=== PATIENT | female | born 1950 | race Caucasian/White ===

== ENCOUNTER 2019-10-01 20:48 | Inpatient (IN) | payer OTHER ==
[~2019-10-01] VITALS: Ht 165.1 cm; Wt 115.7 kg
[2019-10-01 20:49] VITALS: BP 145/60
--- NOTE | 2019-10-01 20:49 | NUR ---
PT AMBULATED TO BED WITH DAUGHTER
--- NOTE | 2019-10-01 21:00 | NUR ---
69/F PRESENTS TO ED WITH DAUGHTER, C/O CONSTIPATION X4 DAYS. LBM 4 DAYS AGO WITH HARD, SMALL STOOL. REPORTS N/V X1 EPISODE TODAY. PT AWAKE AND ALERT, SKIN NORMAL COLOR WARM AND DRY, SPO2 95% ON RA, RR 22 EVEN AND MILDLY LABORED, LUNG SOUNDS CLEAR BL. HR EVEN AND REGULAR, NSR ON MONITOR. BS HYPOACTIVE X4, ABD SOFT LARGE TENDER TO UPPER ABD WITH PALPATION. HX HTN, DM, CHF, GERD, 4X BYPASS (2017), L NECK SURGERY
[2019-10-01] MEDS ORDERED: ONDANSETRON 4 MG/2 ML VIAL IVP ONE (21:50)
[2019-10-01] MEDS ORDERED: MORPHINE SULFATE 4 MG/ML SYR IVP ONE (21:50)
[2019-10-01] MEDS ORDERED: FERR325E14 PO (21:54)
[2019-10-01] MEDS ORDERED: ISOS20TA11 PO (21:54)
[2019-10-01] MEDS ORDERED: METO25TA PO (21:54)
[2019-10-01] MEDS ORDERED: METF500T PO (21:54)
[2019-10-01] MEDS ORDERED: ATOR40TA PO (21:54)
[2019-10-01] MEDS ORDERED: ISOS30TE68 PO (21:54)
[2019-10-01] MEDS ORDERED: HYDR-3233 PO (21:54)
[2019-10-01] MEDS ORDERED: AMLO10TA PO (21:54)
[2019-10-01] MEDS ORDERED: CARV25TA PO (21:54)
[2019-10-01] MEDS ORDERED: ASPI-1718 PO (21:54)
[2019-10-01] MEDS ORDERED: LOSA50TA66 PO (21:54)
[2019-10-01] MEDS ORDERED: OMEP20EC11 PO (21:54)
[2019-10-01] MEDS ORDERED: FURO-570 PO (21:54)
--- NOTE | 2019-10-01 21:55 | NUR ---
PT TAKEN TO CT SCAN VIA WHEELCHAIR
--- NOTE | 2019-10-01 22:30 | NUR ---
PT REFUSED MORPHINE IVP, PT STATED THAT SHE IS NOT IN PAIN, SHE JUST FEELS ABD PRESSURE. PT WITH NAUSEA, ADMINISTERED ZOFRAN IVP WITH EDUCATION, PT VERBALIZED UNDERSTANDING, TOLERATED WELL.
[2019-10-01 22:31] LABS: BASOPHILS % (AUTO) 0.3 % (0.0-2.0); EOSINOPHILS # (AUTO) 0.1 K/uL (0-0.4); EOSINOPHILS % (AUTO) 0.7 % (0.0-4.0); HEMATOCRIT 26.2 % (36-48); HEMOGLOBIN 8.8 g/dL (12.0-16.0); LYMPHOCYTES # (AUTO) 1.3 K/uL (2.5-16.5); LYMPHOCYTES % (AUTO) 14.8 % (20.5-51.1); MEAN CORPUSCULAR HEMOGLOBIN 30 pg (27-31); MEAN CORPUSCULAR HGB CONC 34 g/dL (33-37); MEAN CORPUSCULAR VOLUME 88.4 fL (80-94); MONOCYTES # (AUTO) 0.9 K/uL (0.8-1.0); MONOCYTES % (AUTO) 10.1 % (1.7-9.3); NEUTROPHILS # (AUTO) 6.7 K/uL (1.8-7.7); NEUTROPHILS % (AUTO) 74.1 % (42.2-75.2); PLATELET COUNT (AUTO) 249 K/uL (140-450); RED BLOOD CELL COUNT(AUTO) 2.97 MIL/uL (4.20-5.40); RED CELL DISTRIBUTION WIDTH 13.8 % (11.6-13.7)
[2019-10-01 22:33] LABS: APPEARANCE,URINE CLEAR (CLEAR); BILIRUBIN,URINE NEGATIVE (NEGATIVE); BLOOD, URINE TRACE-I (NEGATIVE); COLOR,URINE YELLOW (YELLOW); LEUKOCYTE ESTERASE ,URINE 2+ (NEGATIVE); NITRITE, URINE POSITIVE (NEGATIVE); PH,URINE 5.5 (5.0-9.0); UGLUCOSE NEGATIVE (NEGATIVE)
[2019-10-01 22:48] LABS: ALBUMIN 2.7 g/dL (3.4-5.0); ANION GAP 18.8 (8-16); CARBON DIOXIDE 22.7 mmol/L (21-32); CREATININE 2.2 mg/dL (0.6-1.3); POTASSIUM 4.5 mmol/L (3.5-5.1); TOTAL BILIRUBIN 0.5 mg/dL (0.0-1.0)
[2019-10-01 22:49] LABS: WBC,URINE TOO MANY TO COUNT /HPF (0-5)
[2019-10-01] MEDS ORDERED: metroNIDAZOLE 500 MG/NS PREMIX 100 ML IV ONE (22:55)
[2019-10-01] MEDS ORDERED: NACL 0.9% IV ONE (22:55)
[2019-10-01] MEDS ORDERED: LEVOFLOXACIN 500 MG/D5W PREMIX 100 ML IV ONE (22:55)
--- NOTE | 2019-10-01 23:21 | NUR ---
CLARIFIED ORDER FOR 3390ML NS AT 100ML/HR. PER DR MACIAS, 3390ML NS WAS ORDERED FOR 30ML/KG FLUID RESUSCITATION BOLUS FOR SEPSIS PROTOCOL. DR MACIAS MADE AWARE OF PT HX CHF. PER DR MACIAS, HOLD ORDER FOR NS BOLUS AT THIS TIME.
[2019-10-02] MEDS ORDERED: MAGNESIUM CITRATE 300 ML BTL PO ONE (00:15)
[2019-10-02] MEDS ORDERED: NACL 0.9% 1,000 ML IV SCH (02:39)
[2019-10-02] MEDS ORDERED: ACETAMINOPHEN 325 MG TAB PO PRN (02:40)
[2019-10-02] MEDS ORDERED: HYDROcodone/APAP 5/325 MG 1 TAB TAB PO PRN (02:40)
[2019-10-02] MEDS ORDERED: MORPHINE SULFATE 2 MG/ML SYR IVP PRN (02:40)
[2019-10-02] MEDS ORDERED: ONDANSETRON 4 MG/2 ML VIAL IM/IVP PRN (02:40)
--- NOTE | 2019-10-02 02:40 | NUR ---
DR. FLORES CALLED THAT HE WILL NOT ADMIT THIS PATIENT ,TO ADMIT TO RUBBER BOOTS AND SHOES REPAIRER.
[2019-10-02] MEDS ORDERED: DEXTROSE 50% 50 ML SYR IVP PRN (03:05)
[2019-10-02] MEDS ORDERED: HYDR-1098 PO (03:14)
[2019-10-02] MEDS ORDERED: LOSA100T1 PO (03:14)
[2019-10-02] MEDS ORDERED: METO100T22 PO (03:14)
--- NOTE | 2019-10-02 03:20 | NUR ---
RECEIVED BEDSIDE REPORT FROM VALERY ORTEGA. PT IS AAOX4 PRIMARILY [place] SPEAKING DAUGHTER IS AT BEDSIDE. PT CAME IN ON GURNEY ABLE TO TRANSFER SELF TO BED WITH SOME ASSIST. PT ON NC 2L O2 RESPIRATIONS ARE EQUAL AND SLIGHTLY LABORED. CRACKLES HEARD SHANON. PT WITH SHANON PITTING EDEMA +3. PT STATES BLOATED LAST BM X4DAYS AGO ADMITS TO POOR APPETITE HAS NOT EATEN WELL PAST 2DAYS. ADMITS TO URINARY FREQUENCY AND SOME BURNING UPON URINATION. POC DISCUSSED WITH PATIENT AND DAUGHTER. ADMISSION PHYSICAL EXAM PERFORMED, MRSA SWAB OBTAINED, VS: 125/41, 64, 92% 2L, 98.8 TEMP RR 20 DENIES PAIN STATES ONLY FEELS DISCOMFORT ON ABDOMEN D/T PRESSURE. ORIENTED PT TO ROOM,STAFF,CALL LIGHT AND [id number] HOURS. FALL PRECAUTION IN PLACE. PT USES WALKER AT HOME IS AT HIGH RISK OF FALL D/T WEAKNESS AND SOB WITH ACTIVITY. WILL CONTINUE TO MONITOR.
--- NOTE | 2019-10-02 03:20 | NUR ---
Patient will be admitted to care of DR VELEZ. Admited to [facility] . Will go to room 108A. Belongings list completed. Report to JORDAN ALVARADO.
[2019-10-02 03:22] VITALS: BP 125/41
[2019-10-02] MEDS ORDERED: SODIUM PHOSPHATE 118 ML ENEM RC PRN (03:30)
[2019-10-02 03:44] LABS: PROTHROMBIN TIME 10.8 secs (10.8-13.4)
[2019-10-02] MEDS ORDERED: DEXT 5% / NACL 0.45% 1,000 ML IV ONE (03:45)
[2019-10-02] MEDS ORDERED: FUROSEMIDE 40 MG/4 ML VIAL IVP SCH (04:00)
[2019-10-02] MEDS ORDERED: BISACODYL 10 MG SUPP RC SCH ×2 (04:00→15:00)
[2019-10-02] MEDS ORDERED: cefTRIAXone 1,000 MG VIAL ONE (04:18)
--- NOTE | 2019-10-02 04:32 | NUR ---
MATI MEDICATIONS GIVEN PER ORDERS. ROCEPHIN NOW INFUSING WELL ON RAC. DAUGHTER AT BEDSIDE. CALL LIGHT IS WITHIN REACH. WILL CONTINUE TO MONITOR.
[2019-10-02 04:48] LABS: PHOSPHORUS 3.4 mg/dL (2.5-4.9); THYROID STIMULATING HORMONE 1.37 uIU/mL (0.34-3.74)
[2019-10-02] MEDS: PANTOPRAZOLE 40 MG TABEC PO SCH (06:02)
--- NOTE | 2019-10-02 06:02 | NUR ---
OCCULT BLOOD SENT TO LAB. PROTONIX GIVEN PER ORDERS. BLOOD SUGAR 127 NO COVERAGE NEEDED. SAFETY MEASURES ARE IN PLACE.
[2019-10-02] MEDS: BLOOD GLUCOSE MONITORING 1 DEV DEV FS SCH ×4 (06:04→20:39)
--- NOTE | 2019-10-02 07:27 | NUR ---
GAVE BEDSIDE REPORT TO DAY SHIFT RN. PT ENDORSED IN STABLE CONDITION.
--- NOTE | 2019-10-02 07:41 | NUR ---
RECEIVED BEDSIDE REPORT FROM MATERIAL PROCESSOR RN FOR CONTINUITY OF CARE. PT IS AAOX4 PRIMARILY MONGOLIAN SPEAKING. PT ON NC 2L O2 RESPIRATIONS ARE EQUAL AND SLIGHTLY LABORED WITH RR @ 20. CRACKLES HEARD SHANON. PT WITH SHANON PITTING EDEMA +3. PT STATES BLOATED LAST BM X4DAYS AGO ADMITS TO POOR APPETITE HAS NOT EATEN WELL PAST 2DAYS. ADMITS TO URINARY FREQUENCY AND SOME BURNING UPON URINATION. EXPLAINED POC TO PT AND PT VERBALIZED UNDERSTANDING. ORIENTED PT TO ROOM AND CALL LIGHT. FALL PRECAUTIONS IN PLACE WITH BEDSIDE COMMODE FOR PT SAFETY. PT USES WALKER AT HOME IS AT HIGH RISK OF FALL D/T WEAKNESS AND SOB WITH ACTIVITY. WILL MONITOR PT CLOSELY.
[2019-10-02 07:59] LABS: MAGNESIUM 2.2 mg/dL (1.8-2.4); PHOSPHORUS 3.6 mg/dL (2.5-4.9)
[2019-10-02 08:00] VITALS: BP 147/59
--- NOTE | 2019-10-02 08:22 | NUR ---
PATIENT HAS BEEN SCREENED AND CATEGORIZED MODERATE NUTRITION RISK. PATIENT WILL BE SEEN WITHIN 3-5 DAYS OF ADMISSION. 10/04/19 10/06/[address]
[2019-10-02 08:34] LABS: BASOPHILS % (AUTO) 0.3 % (0.0-2.0); EOSINOPHILS # (AUTO) 0.1 K/uL (0-0.4); EOSINOPHILS % (AUTO) 0.9 % (0.0-4.0); HEMATOCRIT 23.2 % (36-48); HEMOGLOBIN 7.8 g/dL (12.0-16.0); LYMPHOCYTES # (AUTO) 1.1 K/uL (2.5-16.5); LYMPHOCYTES % (AUTO) 11.9 % (20.5-51.1); MEAN CORPUSCULAR HEMOGLOBIN 30 pg (27-31); MEAN CORPUSCULAR HGB CONC 34 g/dL (33-37); MONOCYTES % (AUTO) 11.8 % (1.7-9.3); NEUTROPHILS # (AUTO) 6.7 K/uL (1.8-7.7); NEUTROPHILS % (AUTO) 75.1 % (42.2-75.2); PLATELET COUNT (AUTO) 211 K/uL (140-450); RED BLOOD CELL COUNT(AUTO) 2.63 MIL/uL (4.20-5.40); RED CELL DISTRIBUTION WIDTH 14.1 % (11.6-13.7); WHITE BLOOD COUNT (AUTO) 8.9 K/uL (4.8-10.8)
[2019-10-02] MEDS: FERROUS SULFATE 325 MG TABEC PO SCH (08:56)
[2019-10-02] MEDS: ASPIRIN 81 MG TAB.CHEW PO SCH (08:56)
[2019-10-02] MEDS: FUROSEMIDE 40 MG/4 ML VIAL IVP SCH (08:56)
[2019-10-02] MEDS: amLODIPine 5 MG TAB PO SCH (08:57)
[2019-10-02] MEDS: LACTOBACILLUS RHAMNOSUS GG 1 EACH CAP PO SCH (08:57)
[2019-10-02] MEDS: ASCORBIC ACID 500 MG TAB PO SCH (08:57)
[2019-10-02] MEDS: hydrALAZINE 25 MG TAB PO SCH ×3 (08:58→17:14)
[2019-10-02] MEDS: LOSARTAN 50 MG TAB PO SCH (08:58)
[2019-10-02] MEDS: CARVEDILOL 12.5 MG TAB PO SCH ×2 (08:59→20:25)
[2019-10-02] MEDS: ISOSORBIDE MONONITRATE 30 MG TABER PO SCH (08:59)
[2019-10-02] MEDS ORDERED: NON-FORMULARY ITEM (Omeprazole* (Prilosec*) 20 MG) PO SCH (09:00)
[2019-10-02 09:11] LABS: CARBON DIOXIDE 21.8 mmol/L (21-32); CREATININE 2.2 mg/dL (0.6-1.3); POTASSIUM 4.8 mmol/L (3.5-5.1)
--- NOTE | 2019-10-02 09:15 | NUR ---
ADMINISTERED PT MORNING MEDS. PT TOLERATED WELL. ALL OTHER NEEDS MET. WILL CONTINUE TO ROUND FREQUENTLY ON PT. BED IN LOW POSITION, CALL LIGHT WITHIN REACH.
--- NOTE | 2019-10-02 11:19 | NUR ---
DISCHARGE PLANNIN69 YEAR OLD FEMALE PATIENT FROM HOME, WHO CAME IN DUE TO LOWER ABDOMINAL PAIN X4 DAYS. PAST MEDICAL HISTORY INCLUDE CAD S/P CABG, CAD S/P ENDARTERECTOMY CHF, DIABETES AND HTN. INITIAL DIAGNOSIS OF UTI AND SEPSIS. NA 135, NS AT 100 MLS/H. CT OF ABD/PELVIS SHOWED MILD INFLAMMATION SURROUNDING PANCREATIC HEAD. LIPASE 82/ AMYLASE 31. CXR SHOWED SUPERIMPOSED INFILTRATE IS NOT EXCLUDED. ON ROCEPHIN. ON O2 2LPM/NC. CARDIO CONSULT WITH DR. HOLGUIN RE: CHF. PULMO CONSULT WITH DR. MATHEWS RE: ACF. NEPHRO CONSULT WITH DR FLORES RE: COMPLICATED UTI. DC PLAN PENDING ON PATIENT'S RESPONSE TO TREATMENT. Addendum: 10/02/19 at 1637 by Karina Chatterjee CM CONTACTED PATIENT'S PCP DR. REYES GUERRA AT [phone], ABLE TO SPEAK TO KIM REGARDING POST DC APPOINTMENT. HE PROVIDED ME WITH Oct AT 0900. COPY OF THE APPOINTMENT PROVIDED TO THE PATIENT AND INSTRUCTD HER TO BRING DC PACKET TO THE APPOINTMENT. ABLE TO VERBALIZE UNDERSTANDING. Addendum: 10/03/19 at 1556 by Karina B. Berdijo CM ON FLAGYL, ROCEPHIN AND FUROSEMIDE IV. KUB NORMAL. CXR WITH CARDIOMEGALY WITH IMPROVED PULMONARY EDEMA. RENAL US SHOWED MEDICAL RENAL DISEASE WITHOUT HYDRONEPHROSIS. STOOL OCCULT BLOOD NEGATIVE.
--- NOTE | 2019-10-02 11:29 | NUR ---
PT RESTING IN BED WITH DAUGHTER AT BEDSIDE. WILL CONTINUE TO ROUND FREQUENTLY ON PT. BED IN LOW POSITION, CALL LIGHT WITHIN REACH. WILL CONTINUE TO ROUND FREQUENTLY ON PT. BED IN LOW POSITION, CALL LIGHT WITHIN REACH.
[2019-10-02 12:00] VITALS: BP 109/44
--- NOTE | 2019-10-02 13:42 | NUR ---
PT RESTING IN BED. ALL NEEDS MET. WILL CONTINUE TO ROUND FREQUENTLY ON PT. BED IN LOW POSITION, CALL LIGHT WITHIN REACH.
[2019-10-02] MEDS ORDERED: MAGNESIUM CITRATE 300 ML BTL PO PRN (14:40)
--- NOTE | 2019-10-02 14:49 | NUR ---
FNS CONSULT HAS BEEN RECEIVED FOR DIABETES DIET EDUCATION. PATIENT HAS BEEN RE-SCREENED HIGH RISK AND WILL BE SEEN WITHIN 1-2 DAYS OF RECEIVING THE FNS CONSULT. FRANK SOLORZ[address]O RD
--- NOTE | 2019-10-02 15:43 | NUR ---
PT RESTING IN BED. ALL NEEDS MET. WILL CONTINUE TO ROUND FREQUENTLY ON PT. CALL LIGHT WITHIN REACH, BED IN LOW POSITION, CALL LIGHT WITHIN REACH.
[2019-10-02 16:00] VITALS: BP 112/55
[2019-10-02] MEDS: SODIUM FERRIC GLUCONATE 125 MG in NACL 0.9% 100 ML IV SCH (17:14)
--- NOTE | 2019-10-02 17:44 | NUR ---
PT RESTING IN BED WITH FAMILY AT BEDSIDE. ALL NEEDS MET. WILL CONTINUE TO ROUND FREQUENTLY ON PT.
--- NOTE | 2019-10-02 19:29 | NUR ---
ENDORSED PT TO ARMATURE REWINDER FOR CONTINUITY OF CARE. PT IN STABLE CONDITION AT THIS TIME.
--- NOTE | 2019-10-02 19:30 | NUR ---
RECEIVED REPORT FROM TERA ORTEGA DAYSHIFT NURSE AT BEDSIDE FOR CONTINUITY OF CARE, PT IN STABLE CONDITION.
[2019-10-02 20:00] VITALS: BP 137/50
[2019-10-02] MEDS: ATORVASTATIN 20 MG TAB PO SCH (20:25)
[2019-10-02] MEDS: INSULIN LISPRO SLIDING SCALE 100 UNITS/ML VIAL SUBQ PRN (20:34)
--- NOTE | 2019-10-02 20:42 | NUR ---
PT IN BED NO C/O OF PAIN, SKIN INTACT , EXTREMITIES ARE PITTING +1 EDEMA. SHE HAS A N/C WITH 2 LITERS RUNNING SUPPLEMENTAL 02. BOWEL SOUNDS PRESENT AND LUNG SOUNDS DIMINISHED. V/S FOLLOWS T 98.8 P 66 R 20 B/P 137/50. PT GIVEN ORDERED MEDICATION OF COREG, LIPITOR AND HEPARIN. PT FINGERSTICK IS 199, SHE WAS GIVEN 2 UNITS OF HUMALOG COVERAGE. EDUCATION REGARDING DIAGNOSIS AND MEDICATION PROVIDED VIA [employer] MACHINE HOOP MAKER PHONES USING HOSE CEMENTER Merku . PT VERBALIZED UNDERSTANDING. ALL REQUESTED NEEDS ATTENDED AND ALL FALLS PRECAUTIONS IN PLACE.
--- NOTE | 2019-10-02 22:30 | NUR ---
PT IN BED RESTING WITH EYES CLOSED, N/C INTACT AND ALL FALLS PRECAUTIONS IN PLACE.
[2019-10-03] VITALS: BP 108/35
--- NOTE | 2019-10-03 | NUR ---
PT SITTING UP IN BED WITH N/C IN PLACE, NO S/S OF PAIN OR DISTRESS NOTED. V/S FOLLOWS T 99.3 P 58 R 20 B/P 108/35 02 94% ON 2 L VIA N/C. ALL FALLS PROTOCOL IN PLACE AND CALL RILEY IN REACH.
--- NOTE | 2019-10-03 03:00 | NUR ---
IV SITE INTACT AND ASYMPTOMATIC, ROCEPHIN HUNG AND RUNNING AT 100MLS/HR ORDERED. PT CONTINUES ON 2 LITERS VIA N/C ALL FALLS PROTOCOL IN PLACE AND CALL RILEY IN REACH.
[2019-10-03 04:00] VITALS: BP 94/77
--- NOTE | 2019-10-03 04:15 | NUR ---
PT IN BED SHE WAS RESTING BUT AROUSAL WITH NAME AND LIGHT TOUCH. V/S FOLLOWS T 98.7 P 60 R 18 B/P 94/77 02 94% ON 2 LITERS N/C. ALL FALLS PROTOCOL IN PLACE ALL REQUESTED NEEDS ATTENDED BY STAFF.
[2019-10-03] MEDS: PANTOPRAZOLE 40 MG TABEC PO SCH (06:45)
[2019-10-03] MEDS: BLOOD GLUCOSE MONITORING 1 DEV DEV FS SCH ×4 (06:47→20:24)
[2019-10-03] MEDS: INSULIN LISPRO SLIDING SCALE 100 UNITS/ML VIAL SUBQ PRN ×4 (06:49→20:32)
--- NOTE | 2019-10-03 06:50 | NUR ---
FINGERSTICK IS 194 GIVEN 2 UNITS OF HUMALOG COVERAGE.
--- NOTE | 2019-10-03 07:10 | NUR ---
RECEIVED BEDSIDE REPORT FROM TRAIN PLANNER NURSE. PATIENT IS AWAKE, ALERT AND ORIENTEDX4. NO SIGNS OF DISTRESS ON 2L NC. PATIENT AMBULATORY WITH ASSIST. FALL RISK PROTOCOL IN PLACE. SKIN IS INTACT. R AC 20G INFUSING D5 1/2NS AT 10. CLEAN, DRY AND INTACT. TELE MONITOR IN PLACE. ABLE TO MAKE NEEDS KNOWN. ENGLISH SPEAKER. BED IN LOW POSITION. CALL LIGHT WITHIN REACH. BEDSIDE COMMODE AVAILABLE. WILL CONTINUE TO MONITOR THE PATIENT.
[2019-10-03 08:00] VITALS: BP 147/70
[2019-10-03 08:07] LABS: FOLIC ACID 12.8 ng/mL (>3.0)
[2019-10-03] MEDS: ASPIRIN 81 MG TAB.CHEW PO SCH (09:28)
[2019-10-03] MEDS: ISOSORBIDE MONONITRATE 30 MG TABER PO SCH (09:28)
[2019-10-03] MEDS: hydrALAZINE 25 MG TAB PO SCH ×3 (09:28→16:21)
[2019-10-03] MEDS: amLODIPine 5 MG TAB PO SCH (09:29)
[2019-10-03] MEDS: LOSARTAN 50 MG TAB PO SCH (09:31)
[2019-10-03] MEDS: LACTOBACILLUS RHAMNOSUS GG 1 EACH CAP PO SCH (09:31)
[2019-10-03] MEDS: ASCORBIC ACID 500 MG TAB PO SCH (09:32)
[2019-10-03] MEDS: FUROSEMIDE 40 MG/4 ML VIAL IVP SCH (09:32)
[2019-10-03] MEDS: FERROUS SULFATE 325 MG TABEC PO SCH (09:32)
[2019-10-03] MEDS: CARVEDILOL 12.5 MG TAB PO SCH ×2 (09:32→20:40)
--- NOTE | 2019-10-03 09:45 | NUR ---
ADMINISTERED MEDS. PATIENT TOLERATED WELL. EDUCATED ON MEDS. FAMILY AT BEDSIDE. WILL CONTINUE TO MONITOR THE PATIENT.
[2019-10-03 10:49] LABS: ANION GAP 13.4 (8-16); CARBON DIOXIDE 25.1 mmol/L (21-32); CREATININE 2.6 mg/dL (0.6-1.3); POTASSIUM 4.5 mmol/L (3.5-5.1)
--- NOTE | 2019-10-03 10:57 | NUR ---
PATIENT GETTING KUB DONE.
[2019-10-03 12:00] VITALS: BP 111/38
[2019-10-03] MEDS: metroNIDAZOLE 500 MG/NS PREMIX 100 ML IV SCH ×2 (12:50→20:39)
--- NOTE | 2019-10-03 12:57 | NUR ---
ADMINISTERED MEDS. PATIENT TOLERATED WELL. NO SIGNS OF DISTRESS. WILL CONTINUE TO MONITOR
--- NOTE | 2019-10-03 13:47 | NUR ---
PATIENT IN NO DISTRESS. FAMILY AT BEDSIDE
--- NOTE | 2019-10-03 14:36 | NUR ---
10/03/19 RD INITIAL ASSESSMENT COMPLETED PLEASE REFER TO NUTRITION ASSESSMENT UNDER CARE ACTIVITY FOR ESTIMATED NUTRITIONAL NEEDS. 1. RECOMMEND MECHANICAL SOFT, CARDIAC, 60GCCHO DIET WITH 1.5 FLUID RESTRICITION 2. CONTINUE GLUCERNA 1X DAY 3. NUTRITION EDUCATION ON DM MANAGEMENT AND HEALTHY EATING WAS GIVEN 4. RD TO FOLLOW-UP 5-7 DAYS, LOW RISK FRANK SOLORZANO, RD
--- NOTE | 2019-10-03 14:40 | NUR ---
PATIENT SITTING AT BEDSIDE. NO SIGNS OF DISTRESS. WILL CONTINUE TO MONITOR THE PATIENT.
[2019-10-03 16:00] VITALS: BP 103/35
--- NOTE | 2019-10-03 16:09 | NUR ---
Dental Sales Representative Assessment/Discharge Plan: Name: Rebecca Stuart Relationship: daughter Pre-Admission Living Arrangements: Lives with Other Other: : Zhen De Los Santos Prior ADL Needs Assistance Current / Name/Tel: blood glucose monitor, walker, no home O2, no wheelchair Healthcare Decision Maker: Patient Advance Directive No Information Taught: Advance Directive Community Resources Person Taught: Patient Spouse Teaching Tools: Community Resources Computer Generated Print Verbal Factors Affecting Learning: None Participation Level: Active Evaluation: Gestures Understanding Verbalizes Understanding Educator: NGOC Sprague Discipline: Case Mgt/Social Svcs Tentative Discharge Plan Summary: Patient is a 69 year old female, admitted for UTI. I met with patient and patient's Zhen De Los Santos at bedside. Patient alert and oriented x4. Patient and Zhen speak Finnish. Patient lives at home with Zhen and plans to return home upon discharge. Patient has a new pcp, she does not recall pcp's name. Zhen and two daughters Joyce and Rebecca assist patient with ADLs and with transportation. Patient denied alcohol/substance abuse. Patient reported having anxiety and does not take medication for it. She also has on and off depression. She denied SI/HI. I provided her with a list of counseling/mental health services. Dental Sales Representative and/or Transmission Calibration Engineer will follow up as needed. Signature: NGOC Sprague Date: Oct 02, 2019
--- NOTE | 2019-10-03 16:45 | NUR ---
FAMILY AT BEDSIDE. PATIENT IN NO DISTRESS
[2019-10-03] MEDS: SODIUM FERRIC GLUCONATE 125 MG in NACL 0.9% 100 ML IV SCH (17:01)
--- NOTE | 2019-10-03 17:11 | NUR ---
ADMINISTERED MEDS. PATIENT TOLERATED WELL. NO SIGNS OF DISTRESS. WILL CONTINUE TO MONITOR THE PATIENT. FAMILY AT BEDSIDE
--- NOTE | 2019-10-03 18:06 | NUR ---
PATIENT IS SLEEPING. NO SIGNS OF DISTRESS
--- NOTE | 2019-10-03 19:16 | NUR ---
GAVE BEDSIDE REPORT TO INDUSTRIAL TECH INSTRUCTOR NURSE. ENDORSED PATIENT IN STABLE CONDITION
--- NOTE | 2019-10-03 19:18 | NUR ---
RECEIVED BEDSIDE REPORT FROM AM SHIFT NURSE. PATIENT IS AWAKE, ALERT AND ORIENTEDX4. NO SIGNS OF DISTRESS ON 2L NC. PATIENT AMBULATORY WITH ASSIST. FALL RISK PROTOCOL IN PLACE. SKIN IS INTACT. R AC 20G INFUSING D5 1/2NS AT 10. CLEAN, DRY AND INTACT. TELE MONITOR IN PLACE. ABLE TO MAKE NEEDS KNOWN. CHILEAN SPEAKER. BED IN LOW POSITION. CALL LIGHT WITHIN REACH. BEDSIDE COMMODE AVAILABLE. WILL CONTINUE TO MONITOR THE PATIENT.
[2019-10-03 20:00] VITALS: BP 121/47
--- NOTE | 2019-10-03 20:24 | NUR ---
MEDICATED PT; BLOOD GLUCOSE CHECKED 212= WILL ADMINISTER 4 UNITS OF INSULIN Addendum: 10/04/19 at 0126 by Mandy Umaña RN AMEND TO ADMINISTERED 4 UNITS OF INSULIN
[2019-10-03] MEDS: ATORVASTATIN 20 MG TAB PO SCH (20:40)
--- NOTE | 2019-10-03 21:00 | NUR ---
PATIENT WENT TO COMMODE WITH MINIMAL ASSIST, VOIDED 1X
--- NOTE | 2019-10-03 22:15 | NUR ---
WITH FRIENDS AT BEDSIDE; INFORMED THEM OF VISITING HOURS
--- NOTE | 2019-10-03 23:45 | NUR ---
CHECKED ON PATIENT, SLEEPING, NO COMPLAINTS AT THIS TIME. NO RESPIRATORY DISTRESS
[2019-10-04] VITALS: BP 120/50
--- NOTE | 2019-10-04 01:29 | NUR ---
CHECKED ON PATIENT, NO RESPIRATORY DISTRESS; NO COMPLAINTS OF PAIN; PATIENT SLEEPING; ABLE TO TURN FROM SIDE TO SIDE HERSELF
--- NOTE | 2019-10-04 03:00 | NUR ---
PATIENT VOIDED AT BEDSIDE COMMODE W/ 1 PERSON ASSIST. NO COMPLAINTS AT THIS TIME
[2019-10-04 04:00] VITALS: BP 122/49
[2019-10-04] MEDS: metroNIDAZOLE 500 MG/NS PREMIX 100 ML IV SCH ×2 (05:53→13:45)
[2019-10-04] MEDS: PANTOPRAZOLE 40 MG TABEC PO SCH (05:53)
[2019-10-04] MEDS: BLOOD GLUCOSE MONITORING 1 DEV DEV FS SCH ×4 (06:35→22:10)
--- NOTE | 2019-10-04 06:40 | NUR ---
PT AWAKE, ALERT ORIENTED X 4, AMBULATORY W/ 1 PERSON ASSIST, PT FALL RISK. PT IN STABLE CONDITION. WILL ENDORSE TO NEXT SHIFT
[2019-10-04 07:07] LABS: BASOPHILS # (AUTO) 0.1 K/uL (0.00-0.22); BASOPHILS % (AUTO) 0.7 % (0.0-2.0); EOSINOPHILS # (AUTO) 0.2 K/uL (0-0.4); EOSINOPHILS % (AUTO) 2.7 % (0.0-4.0); HEMATOCRIT 21.3 % (36-48); HEMOGLOBIN 7.2 g/dL (12.0-16.0); LYMPHOCYTES # (AUTO) 1.3 K/uL (2.5-16.5); LYMPHOCYTES % (AUTO) 17.5 % (20.5-51.1); MEAN CORPUSCULAR HEMOGLOBIN 30 pg (27-31); MEAN CORPUSCULAR HGB CONC 34 g/dL (33-37); MEAN CORPUSCULAR VOLUME 87.6 fL (80-94); MONOCYTES # (AUTO) 0.9 K/uL (0.8-1.0); MONOCYTES % (AUTO) 11.5 % (1.7-9.3); NEUTROPHILS # (AUTO) 5.2 K/uL (1.8-7.7); NEUTROPHILS % (AUTO) 67.6 % (42.2-75.2); PLATELET COUNT (AUTO) 235 K/uL (140-450); RED BLOOD CELL COUNT(AUTO) 2.44 MIL/uL (4.20-5.40); RED CELL DISTRIBUTION WIDTH 13.8 % (11.6-13.7); WHITE BLOOD COUNT (AUTO) 7.7 K/uL (4.8-10.8)
[2019-10-04 07:14] LABS: ANION GAP 14.6 (8-16); CARBON DIOXIDE 22.6 mmol/L (21-32); CREATININE 2.3 mg/dL (0.6-1.3); POTASSIUM 4.2 mmol/L (3.5-5.1)
--- NOTE | 2019-10-04 07:20 | NUR ---
PT IS AWAKE, ALERT, VERBALLY RESPONSIVE, SITTING ON THE SIDE OF THE BED. RECEIVED BEDSIDE REPORT FROM NIGHT NURSE. DENIES ANY PAIN OR DISCOMFORT. CALL LIGHT WITHIN REACH.
[2019-10-04 08:00] VITALS: BP 134/48
[2019-10-04] MEDS: CARVEDILOL 12.5 MG TAB PO SCH ×2 (09:00→22:22)
[2019-10-04] MEDS: amLODIPine 5 MG TAB PO SCH (09:00)
[2019-10-04] MEDS: LOSARTAN 50 MG TAB PO SCH (09:00)
[2019-10-04] MEDS: hydrALAZINE 25 MG TAB PO SCH ×3 (09:00→17:00)
--- NOTE | 2019-10-04 09:00 | NUR ---
BLADDER SCAN DONE, O ML NOTED. WILL RECHECK AGAIN FOR RESIDUAL.
[2019-10-04] MEDS: FUROSEMIDE 40 MG/4 ML VIAL IVP SCH (09:09)
[2019-10-04] MEDS: ASCORBIC ACID 500 MG TAB PO SCH (09:10)
[2019-10-04] MEDS: FERROUS SULFATE 325 MG TABEC PO SCH (09:10)
[2019-10-04] MEDS: ASPIRIN 81 MG TAB.CHEW PO SCH (09:12)
[2019-10-04] MEDS: ISOSORBIDE MONONITRATE 30 MG TABER PO SCH (09:13)
[2019-10-04] MEDS: LACTOBACILLUS RHAMNOSUS GG 1 EACH CAP PO SCH (09:14)
[2019-10-04] MEDS ORDERED: SIMETHICONE 80 MG TAB.CHEW PO SCH (09:59)
--- NOTE | 2019-10-04 11:20 | NUR ---
PATIENT IS IN BED, ASLEEP, ABLE TO WAKE. DENIES ANY PAIN OR DISCOMFORT. BLOOD SUGAR NOTED WITH 243 WITH COVERAGE ORDERED. NO S/S OF DISTRESS NOTED. AT BEDSIDE.
[2019-10-04 11:27] LABS: CHOL/HDL RATIO 2.9 (1-4.5)
[2019-10-04 12:00] VITALS: BP 130/46
[2019-10-04] MEDS: INSULIN LISPRO SLIDING SCALE 100 UNITS/ML VIAL SUBQ PRN ×3 (12:21→22:12)
--- NOTE | 2019-10-04 13:30 | NUR ---
PATIENT REFUSED LUNCH BUT ATE A SANDWICH. MEDICATED WITH MILK OF MAGNESIA FOR C/O CONSTIPATION ORDERED. DENIES ANY OTHER DISCOMFORT. PATIENT IS UP SITTING ON THE SIDE OF THE BED. IV INTACT AND PATENT TO RIGHT AC, IV ABT INFUSING @ 100ML/HR. WILL CONTINUE TO MONITOR PATIENT. CALL LIGHT WITHIN REACH. BEDSIDE COMMODE IN ROOM.
[2019-10-04] MEDS ORDERED: MAGNESIUM HYDROXIDE 2400 MG/30 ML UDC PO SCH (13:32)
--- NOTE | 2019-10-04 15:30 | NUR ---
PATIENT IS ALERT AND ORIENTED X4. PATIENT IN BED ALERT AND AWAKE. AT BEDSIDE. NO S/S OF DISTRESS NOTED. PT USES BEDSIDE COMMODE.
[2019-10-04 16:00] VITALS: BP 138/55
--- NOTE | 2019-10-04 17:00 | NUR ---
PT ON CONTACT ISOLATION PRECAUTION DUE TO MDRO OF URINE. DR. WISEMAN NOTIFIED. PATIENT AWARE.
--- NOTE | 2019-10-04 19:06 | NUR ---
PATIENT IS IN STABLE CONDITION. BEDSIDE REPORT GIVEN TO NIGHT NURSE.
--- NOTE | 2019-10-04 19:07 | NUR ---
RECEIVED BEDSIDE REPORT FROM AM SHIFT NURSE. PATIENT IS AWAKE, ALERT AND ORIENTEDX4.TELE MONITORING. NO SIGNS OF DISTRESS, ON RA. PT PATIENT AMBULATORY WITH ASSIST. PT CONTACT PRECAUTION FOR MDRO URINE. FALL RISK PROTOCOL IN PLACE. SKIN IS INTACT. R AC 20G INFUSING D5 1/2NS AT 10. CLEAN, DRY AND INTACT. TELE MONITOR IN PLACE. ABLE TO MAKE NEEDS KNOWN. ALBANIAN SPEAKER. BED IN LOW POSITION. CALL LIGHT WITHIN REACH. BEDSIDE COMMODE AVAILABLE. WILL CONTINUE TO MONITOR THE PATIENT
[2019-10-04 20:00] VITALS: BP 140/55
[2019-10-04] MEDS ORDERED: MEROPENEM 500 MG in NACL 0.9% 50 ML IV SCH (21:00)
--- NOTE | 2019-10-04 22:00 | NUR ---
PT NO COMPLAINTS AT THIS TIIME WENT TO COMMODE, TOLERATED. WILL CONTINUE TO MONITOR
--- NOTE | 2019-10-04 22:15 | NUR ---
DAUGHTER VISITED; INFORMED HER TO GOWN UP HAS MDRO URINE AND A CONTACT PREACUTION
[2019-10-04] MEDS: ATORVASTATIN 20 MG TAB PO SCH (22:21)
[2019-10-04] MEDS: MEROPENEM 500 MG in NACL 0.9% 50 ML IV SCH (22:21)
--- NOTE | 2019-10-04 23:55 | NUR ---
PT C/O OF LEAKING IV; CHECKED; PT'S IV INFILTRATED. IV INSERTION DONE ON NEW SITE RIGHT HAND G 22 ; WITH GOOD BLOOD RETURN, PT TOLERATED PROCEDURE. EXPLAINED THE RISKS AND BENEFITS. PT VERBALIZED UNDERSTANDING.
[2019-10-05] VITALS: BP 138/50
--- NOTE | 2019-10-05 01:30 | NUR ---
COLLECTED URINE FOR URINE TEST, AWAITING RESULTS TO RELAY RESULT TO RADIOLOGY DEPT SO THAT CT SCAN OF THE PELVIS AND ABDOMEN CAN BE DONE. Addendum: 10/05/19 at 0207 by Mandy Umaña RN YONIS
--- NOTE | 2019-10-05 02:07 | NUR ---
PT SLEEPING, NO COMPLAINTS AT THIS TIME, NOT IN RESPIRATORY DISTRESS. WILL CONTINUE YO MONITOR.
[2019-10-05] MEDS: BLOOD GLUCOSE MONITORING 1 DEV DEV FS SCH ×4 (05:09→21:03)
[2019-10-05] MEDS: INSULIN LISPRO SLIDING SCALE 100 UNITS/ML VIAL SUBQ PRN ×4 (05:12→21:02)
[2019-10-05 06:00] VITALS: BP 138/56
[2019-10-05] MEDS: PANTOPRAZOLE 40 MG TABEC PO SCH (06:50)
--- NOTE | 2019-10-05 07:09 | NUR ---
PT AWAKE ALERT ORIENTED X 4, AMBULATORY, WITH MINIMAL ASSIST. RE CHECKED BLOOD SUGAR EARLIER AT 0748 BECAUSE LATASHA SAID THAT BLOOD SUGAR NEEDS TO BE RE-DRAWN THEY HAVE A CRITICAL RESULT. MY REPEAT RESULT WAS 169 MG/DL. LAB REDRAW BLOOD SUGAR JUST RECENTLY, AWAITING FOR RESULT. FOR MONITORING. INFORMED AND ENDORSED TO NEXT SHIFT RNADAN
--- NOTE | 2019-10-05 07:10 | NUR ---
RECEIVED REPORT FROM HOUSING RELOCATION NURSE GABINO. PT IS AAOX4, NO C/O PAIN AT THIS TIME. DAUGHTER AT BEDSIDE. IV ON RT HAND 22 GA, IV DRESSING CLEAN, DRY AND INTACT. PT ON TELE MONITOR. RESPIRATIONS EVEN AND UNLABORED ON O2 2L VIA N/C, O2 SAT 92%. ABD SOFT, ACTIVE BS, LBM 10/02. SKIN IS INTACT, WARM TO TOUCH. REVIEWED POC WITH PT, PT VERBALIZED UNDERSTANDING.
[2019-10-05 07:35] LABS: BASOPHILS % (AUTO) 0.6 % (0.0-2.0); EOSINOPHILS # (AUTO) 0.2 K/uL (0-0.4); EOSINOPHILS % (AUTO) 2.2 % (0.0-4.0); HEMATOCRIT 22.1 % (36-48); HEMOGLOBIN 7.5 g/dL (12.0-16.0); LYMPHOCYTES # (AUTO) 1.5 K/uL (2.5-16.5); LYMPHOCYTES % (AUTO) 19.4 % (20.5-51.1); MEAN CORPUSCULAR HEMOGLOBIN 30 pg (27-31); MEAN CORPUSCULAR HGB CONC 34 g/dL (33-37); MONOCYTES # (AUTO) 0.8 K/uL (0.8-1.0); NEUTROPHILS # (AUTO) 5.1 K/uL (1.8-7.7); NEUTROPHILS % (AUTO) 66.8 % (42.2-75.2); PLATELET COUNT (AUTO) 266 K/uL (140-450); RED BLOOD CELL COUNT(AUTO) 2.51 MIL/uL (4.20-5.40); RED CELL DISTRIBUTION WIDTH 13.6 % (11.6-13.7); WHITE BLOOD COUNT (AUTO) 7.6 K/uL (4.8-10.8)
[2019-10-05 08:00] VITALS: BP 144/54
[2019-10-05 08:04] LABS: ANION GAP 12.6 (8-16); CARBON DIOXIDE 26.9 mmol/L (21-32); POTASSIUM 4.5 mmol/L (3.5-5.1)
[2019-10-05] MEDS: amLODIPine 5 MG TAB PO SCH (09:00)
[2019-10-05] MEDS: hydrALAZINE 25 MG TAB PO SCH ×3 (09:00→17:00)
[2019-10-05] MEDS: LOSARTAN 50 MG TAB PO SCH (09:13)
[2019-10-05] MEDS: CARVEDILOL 12.5 MG TAB PO SCH ×2 (09:13→20:52)
[2019-10-05] MEDS: ASPIRIN 81 MG TAB.CHEW PO SCH (09:14)
[2019-10-05] MEDS: FUROSEMIDE 40 MG TAB PO SCH (09:15)
[2019-10-05] MEDS: ISOSORBIDE MONONITRATE 30 MG TABER PO SCH (09:15)
[2019-10-05] MEDS: LACTOBACILLUS RHAMNOSUS GG 1 EACH CAP PO SCH (09:15)
--- NOTE | 2019-10-05 09:15 | NUR ---
PT ASSISTED AND GIVEN NURA CARE. NOTED MODERATE AMOUNT OF URINE WITH NO ODOR AND MODERATE AMOUNT OF BROWN, FORMED STOOL IN BSC. PT DENIES PAIN, STATES "CANSADO". ASSISTED PT BACK TO BED. RESPIRATIONS EVEN AND UNLABORED ON RA.
[2019-10-05] MEDS: FERROUS SULFATE 325 MG TABEC PO SCH (09:16)
[2019-10-05] MEDS: MEROPENEM 500 MG in NACL 0.9% 50 ML IV SCH ×2 (09:16→20:51)
[2019-10-05] MEDS: ASCORBIC ACID 500 MG TAB PO SCH (09:16)
--- NOTE | 2019-10-05 09:24 | NUR ---
ADMINISTERED MEDICATIONS PER ORDER, PT VERBALIZED UNDERSTANDING OF INDICATIONS AND POTENTIAL SIDE EFFECTS OF EACH MEDICATION.
[2019-10-05] MEDS ORDERED: SENNA 8.6 MG TAB PO SCH (09:30)
[2019-10-05] MEDS ORDERED: DOCUSATE SODIUM 250 MG GELCAP PO SCH (09:30)
--- NOTE | 2019-10-05 11:20 | NUR ---
BS AT 257, WILL ADMINISTERED INSULIN PER SLIDING SCALE. PT HAS NO S/S OF HYPERGLYCEMIA.
[2019-10-05 12:00] VITALS: BP 131/51
[2019-10-05] MEDS ORDERED: metFORMIN 500 MG TAB PO SCH (12:00)
--- NOTE | 2019-10-05 13:01 | NUR ---
PT SITTING UP AT BEDSIDE HAVING LUNCH, PT HAS NO S/S OF RESPIRATORY DISTRESS.
--- NOTE | 2019-10-05 15:00 | NUR ---
PT LYING IN BED ON LEFT LATERAL SIDE, PT HAS NO SIGNS OF RESPIRATORY DISTRESS AT THIS TIME.
[2019-10-05 16:00] VITALS: BP 101/63
--- NOTE | 2019-10-05 16:45 | NUR ---
PT SITTING UP IN BED. PT IS BRADYCARDIC, HR 52, PT IS ASYMPTOMATIC. WILL CONTINUE TO MONITOR.
--- NOTE | 2019-10-05 19:10 | NUR ---
ENDORSED PT TO DELPHI PROGRAMMER NURSE DAVID. PT HAS NO SIGNS OF DISTRESS AT THIS TIME.
--- NOTE | 2019-10-05 19:11 | NUR ---
RECEIVED REPORT FROM SPIDER ASSEMBLER NURSE. PT IS AAOX4, NO C/O PAIN AT THIS TIME. DAUGHTER AT BEDSIDE. IV ON RT HAND 22 GA, PATENT, INTACT, AND ASYMPTOMATIC. PT ON TELE MONITOR. RESPIRATIONS EVEN AND UNLABORED ON FA ABD SOFT, ACTIVE BS, LBM 10/05. SKIN IS INTACT, WARM TO TOUCH. REVIEWED POC WITH PT, PT VERBALIZED UNDERSTANDING.
[2019-10-05 20:00] VITALS: BP_SYST 137; BP_SYST 151; BP_DIAS 56; BP_DIAS 60
[2019-10-05] MEDS: ATORVASTATIN 20 MG TAB PO SCH (20:51)
[2019-10-05] MEDS: DOCUSATE SODIUM 250 MG GELCAP PO SCH (20:52)
--- NOTE | 2019-10-05 21:02 | NUR ---
GIVEN HEPARIN, MERREM, COLACE, COREG, AND LIPITOR MD ORDERED. BS CHECKED, 268, ADMINISTERED INSULIN SLIDING SCALE. PT TOLERATED WELL.
--- NOTE | 2019-10-05 22:30 | NUR ---
PT SLEEPING IN BED. NO ACUTE DISTRESS NOTED.
[2019-10-06] VITALS: BP 151/60
--- NOTE | 2019-10-06 00:01 | NUR ---
VS CHECKED, WITHIN PT'S BASELINE. WILL CONTINUE TO MONITOR.
--- NOTE | 2019-10-06 02:14 | NUR ---
PT SLEEPING IN BED. AT BEDSIDE. NO ACUTE DISTRESS NOTED.
[2019-10-06 04:00] VITALS: BP 139/52
--- NOTE | 2019-10-06 04:00 | NUR ---
VS CHECKED, WITHIN PT'S BASELINE, WILL CONTINUE TO MONITOR.
[2019-10-06 04:31] VITALS: BP 121/78
[2019-10-06] MEDS: PANTOPRAZOLE 40 MG TABEC PO SCH (05:42)
[2019-10-06] MEDS: BLOOD GLUCOSE MONITORING 1 DEV DEV FS SCH (05:43)
[2019-10-06] MEDS: INSULIN LISPRO SLIDING SCALE 100 UNITS/ML VIAL SUBQ PRN (05:47)
--- NOTE | 2019-10-06 05:47 | NUR ---
GIVEN PROTONIX MD ORDERED, BS CHECKED, 157, ADMINISTERED INSULIN SLIDING SCALE. PT TOLERATED WELL.
--- NOTE | 2019-10-06 06:44 | NUR ---
PT SLEEPING IN BED. NO ACUTE DISTRESS NOTED.
--- NOTE | 2019-10-06 07:06 | NUR ---
ENDORSED PT TO DAY SHIFT NURSEBRAYAN. PT IN STABLE CONDITION.
--- NOTE | 2019-10-06 07:08 | NUR ---
RECEIVED BEDSIDE REPORT FROM FIELD RESEARCH ASSOCIATE NURSE FOR CONTINUITY OF CARE. PATIENT AWAKE AND TALKING TO BY BEDSIDE. PATIENT IS AAOX4, SPEAKS JORDANIAN, UNDERSTAND SOME NEPALI AND ABLE TO MAKE NEEDS KNOWN. RESPIRATION EVEN AND UNLABORED ON RA, LUNG SOUNDS DIMINISHED ON AUSCULTATION. DENIES PAIN, SOB, AND DIZZINESS. NO SIGNS OF DISTRESS NOTED. IV ON R HAND 22G, CLEAN AND INTACT. SKIN CLEAN AND DRY. PATIENT IS CONTINENT AND ABLE TO USE THE BEDSIDE COMMODE WITH MINIMAL ASSISTANCE. DISCUSSED PLAN OF CARE WITH PATIENT AND PATIENT SAID OK. STRICT I&O NOTED AND POSTED BY DOOR. SAFETY MEASURES IN PLACE. BED IN LOW POSITION AND CALL LIGHT WITHIN REACH. TELE MONITOR ATTACHED. INSTRUCTED PATIENT TO USE THE CALL LIGHT FOR ANY ASSISTANCE AND PATIENT WAS AWARE.
--- NOTE | 2019-10-06 07:35 | NUR ---
DR BUSTAMANTE IS TALKING TO PATIENT AT BEDSIDE. NO SIGNS OF DISTRESS NOTED. SAFETY MEASURES IN PLACE.
[2019-10-06] MEDS ORDERED: NITR100C7 PO (07:55)
[2019-10-06 08:00] VITALS: BP 150/41
[2019-10-06 08:00] LABS: BASOPHILS # (AUTO) 0.1 K/uL (0.00-0.22); BASOPHILS % (AUTO) 0.7 % (0.0-2.0); EOSINOPHILS # (AUTO) 0.2 K/uL (0-0.4); EOSINOPHILS % (AUTO) 2.7 % (0.0-4.0); HEMATOCRIT 23.2 % (36-48); LYMPHOCYTES # (AUTO) 1.8 K/uL (2.5-16.5); LYMPHOCYTES % (AUTO) 21.9 % (20.5-51.1); MEAN CORPUSCULAR HEMOGLOBIN 30 pg (27-31); MEAN CORPUSCULAR HGB CONC 34 g/dL (33-37); MEAN CORPUSCULAR VOLUME 88.7 fL (80-94); MONOCYTES # (AUTO) 0.8 K/uL (0.8-1.0); MONOCYTES % (AUTO) 9.2 % (1.7-9.3); NEUTROPHILS # (AUTO) 5.4 K/uL (1.8-7.7); NEUTROPHILS % (AUTO) 65.5 % (42.2-75.2); PLATELET COUNT (AUTO) 293 K/uL (140-450); RED BLOOD CELL COUNT(AUTO) 2.62 MIL/uL (4.20-5.40); RED CELL DISTRIBUTION WIDTH 14.2 % (11.6-13.7); WHITE BLOOD COUNT (AUTO) 8.3 K/uL (4.8-10.8)
[2019-10-06] MEDS ORDERED: DOCU-299 PO (08:09)
[2019-10-06] MEDS ORDERED: LACT1CAP21 PO (08:09)
[2019-10-06 08:14] LABS: ANION GAP 13.9 (8-16); CARBON DIOXIDE 24.6 mmol/L (21-32); CREATININE 1.9 mg/dL (0.6-1.3); POTASSIUM 4.5 mmol/L (3.5-5.1)
[2019-10-06] MEDS: ISOSORBIDE MONONITRATE 30 MG TABER PO SCH (09:02)
[2019-10-06] MEDS: FERROUS SULFATE 325 MG TABEC PO SCH (09:02)
[2019-10-06 09:03] VITALS: BP 165/64
[2019-10-06] MEDS: FUROSEMIDE 40 MG TAB PO SCH (09:03)
[2019-10-06] MEDS: hydrALAZINE 25 MG TAB PO SCH (09:03)
[2019-10-06] MEDS: DOCUSATE SODIUM 250 MG GELCAP PO SCH (09:03)
[2019-10-06] MEDS: amLODIPine 5 MG TAB PO SCH (09:04)
[2019-10-06] MEDS: LACTOBACILLUS RHAMNOSUS GG 1 EACH CAP PO SCH (09:04)
[2019-10-06] MEDS: CARVEDILOL 12.5 MG TAB PO SCH (09:05)
[2019-10-06] MEDS: ASCORBIC ACID 500 MG TAB PO SCH (09:05)
[2019-10-06] MEDS: LOSARTAN 50 MG TAB PO SCH (09:06)
[2019-10-06] MEDS: MEROPENEM 500 MG in NACL 0.9% 50 ML IV SCH (09:06)
[2019-10-06] MEDS: ASPIRIN 81 MG TAB.CHEW PO SCH (09:08)
--- NOTE | 2019-10-06 09:08 | NUR ---
ADMINISTERED MEDS PER MD ORDER, MEDS EDUCATION PROVIDED TO PATIENT AND PATIENT SAID OK, PATIENT TOLERATED MEDS WELL. INFORMED PATIENT AND PATIENT'S DAUGHTER OVER THE PHONE THAT PATIENT WILL BE DISCHARGE FROM HOSPITAL TODAY. ALL AWARE, AND PER PATIENT'S DAUGHTER, SHE WILL BE THE ONE PICKING UP PATIENT AND SHE MIGHT BE HERE AROUND NOON TIME. PATIENT IS SITTING UP ON EDGE OF BED, DENIED PAIN, SOB, AND DIZZINESS. NO SIGNS OF DISTRESS NOTED. SAFETY MEASURES IN PLACE. TELE MONITOR ATTACHED. BED IN LOW POSITION AND CALL LIGHT WITHIN REACH. INSTRUCTED PATIENT TO USE THE CALL LIGHT FOR ANY ASSISTANCE AND PATIENT WAS AWARE.
--- NOTE | 2019-10-06 09:22 | NUR ---
PATIENT IS TALKING TO VISITOR KIM AT BEDSIDE. NO SIGNS OF DISTRESS NOTED. TELE MONITOR ATTACHED.
--- NOTE | 2019-10-06 10:40 | NUR ---
DR BUSTAMANTE IS TALKING TO PATIENT AND PATIENT'S KIM AT BEDSIDE. NO SIGNS OF DISTRESS NOTED. SAFETY MEASURES IN PLACE.
--- NOTE | 2019-10-06 11:37 | NUR ---
DISCHARGE INSTRUCTION PROVIDED TO PATIENT AND PATIENT'S KIM AT BEDSIDE. EDUCATED PATIENT ON MD FOLLOW UP, SEEK MEDICAL HELP IN CASE OF MEDICAL EMERGENCY, MEDICATIONS REGIMENS, SIDE EFFECTS, AND DISEASE MANAGEMENT. ANSWERED ALL PATIENT AND KIM'S QUESTIONS, ALL VERBALIZED UNDERSTANDING. PATIENT'S VACCINES ARE UP TO DATE. DC IV AND CANNULA INTACT AND NO BLEEDING AT IV SITE. REMOVED TELE MONITOR AND RETURNED TO COMMUNICATIONS ASSOCIATE. REMOVED ALL ARM BANDS. PATIENT AND KIM ARE AWARE THAT PRESCRIPTION SENT TO PREFERRED PHARMACY [facility] AT [place]. KIM CHECKED ALL CABINETS AND TOOK ALL PATIENT'S BELONGINGS HOME. POOL MANAGER ESCORTED PATIENT TO LOBBY WITH WHEELCHAIR. PATIENT IS GOING TO DC AT THIS TIME ACCOMPANIED WITH KIM. PATIENT IS IN STABLE CONDITION.
== END 2019-10-06 11:37 | disposition home or self-care (01) | DRG 469 ==
LOC: MED 20:48 → MTU 10-02 02:55
PROVIDERS: ADMIT General Practice; ATTEND General Practice
DX: N17.0 Acute kidney failure with tubular necrosis (principal); J69.0 Pneumonitis due to inhalation of food and vomit; J96.20 Acute and chronic respiratory failure, unspecified whether with hypoxia or hypercapnia; E43 Unspecified severe protein-calorie malnutrition; N39.0 Urinary tract infection, site not specified; I50.43 Acute on chronic combined systolic (congestive) and diastolic (congestive) heart failure; B96.20 Unspecified Escherichia coli [E. coli] as the cause of diseases classified elsewhere; E11.51 Type 2 diabetes mellitus with diabetic peripheral angiopathy without gangrene; E66.2 Morbid (severe) obesity with alveolar hypoventilation; E78.5 Hyperlipidemia, unspecified; I11.0 Hypertensive heart disease with heart failure; I25.10 Atherosclerotic heart disease of native coronary artery without angina pectoris; I50.9 Heart failure, unspecified; Z16.12 Extended spectrum beta lactamase (ESBL) resistance; K21.9 Gastro-esophageal reflux disease without esophagitis; D63.8 Anemia in other chronic diseases classified elsewhere; R31.9 Hematuria, unspecified; D50.9 Iron deficiency anemia, unspecified; K56.41 Fecal impaction; Z68.41 Body mass index [BMI] 40.0-44.9, adult; Z90.5 Acquired absence of kidney; Z90.710 Acquired absence of both cervix and uterus; Z95.1 Presence of aortocoronary bypass graft
CPT/HCPCS: 36415; 36600; 71045; 74018; 76770; 80048; 80053; 81001; 82150; 82272; 82607; 82728; 82746; 82803; 82948; 83036; 83540; 83605; 83615; 83690; 83735; 83880; 84100; 84443; 84484; 85025; 85045; 85610; 85730; 87040; 87081; 87086; 87186; 93005; 93970; 97110; 97112; 97116; 97530; 99285; J0696; J1644; J1815; J1940; J1956; J2185; J2270; J2405; J2916; J3490; J7030; J7060; J7120; Q0092